=== PATIENT | male | born 1970 | race Caucasian/White ===

== ENCOUNTER 2017-07-13 13:15 | Emergency (ER) | payer OTHER ==
[2017-07-13 13:21] VITALS: BP 149/113
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
== END 2017-07-13 14:46 | disposition home or self-care (01) ==
LOC: ER 13:22
DX: M79.671 Pain in right foot (principal); M25.571 Pain in right ankle and joints of right foot; V86.52XA Driver of snowmobile injured in nontraffic accident, initial encounter; Y93.29 Activity, other involving ice and snow
CPT/HCPCS: 99282